=== PATIENT | female | born 1960 | race Caucasian/White ===

== ENCOUNTER → 2016-09-01 10:12 | Outpatient (CLI) | payer MEDICARE ==
[2016-09-01 11:07] LABS: ALBUMIN 3.6 g/dL (3.4-5.0); ANION GAP 13.2 mmol/L (8-16); BILIRUBIN - TOTAL 0.28 mg/dL (0.2-1.3); CARBON DIOXIDE 26.4 mmol/L (21.0-32.0); CREATININE - SERUM 1.1 mg/dL (0.6-1.3); POTASSIUM - SERUM 3.6 mmol/L (3.5-5.1); PROTEIN - SERUM 7.3 g/dL (6.4-8.2); T4 THYROXIN - FREE 1.27 ng/dL (0.76-1.46); THYROID STIMULATING HORMONE 0.09 uIU/mL (0.36-3.74)
== END | disposition home or self-care (01) ==
LOC: D.LAB 10:12
PROVIDERS: Family Medicine
DX: E03.9 Hypothyroidism, unspecified (principal)

== ENCOUNTER 2020-02-01 05:39 | Inpatient (IN) | payer MEDICARE, OTHER ==
[~2020-02-01] VITALS: Ht 152.4 cm; Wt 126.1 kg
[~2020-02-01 05:39] MED LIST: BAYER CHEWABLE81 MG PO; CALCIUM 500 +1 EAC3 PO; CELEXA20 MG PO; CENTRUM SILVER1 EAC3 PO; DULCOLAX5 MG PO; LEVOTHYROXINE150 MCG PO; LIPITOR20 MG PO; LISINOPRIL10 MG PO; OMEPRAZOLE40 MG PO; PROTONIX40 MG PO; STOOL SOFTENER250 MG PO; TORSEMIDE20 MG PO; TRAZODONE HCL50 MG PO; VITAMIN D PO; VITAMIN K2 PO; VOLTAREN25 MG PO
[2020-02-01 06:38] LABS: BASOPHILS 0.6 % (0-2); EOSINOPHILS 7.7 % (0-7); HEMATOCRIT 35.8 % (36.0-48.0); HEMOGLOBIN 11.7 g/dL (12-16); IMMATURE GRANULOCYTES 0.2 % (0-5); LYMPHOCYTES 20.6 % (15-50); MCH 29.8 pg (26.0-34.0); MCHC 32.7 g/dL (31.0-37.0); MCV 91.3 fL (80.0-100.0); MONOCYTES 8.4 % (2-11); NEUTROPHILS 62.5 % (40-80); PLATELET COUNT 334 10x3/uL (130-400); RBC 3.92 10x6/uL (4.00-5.40); RDW 14.2 % (11.5-14.5); WBC 8.7 10x3/uL (4.8-10.8)
[2020-02-01 06:51] LABS: CARBON DIOXIDE 24.5 mmol/L (21.0-32.0); CREATININE - SERUM 1.6 mg/dL (0.6-1.3); POTASSIUM - SERUM 4.5 mmol/L (3.5-5.1)
[2020-02-01 07:58] VITALS: BP 156/77; BMI 54.6
[2020-02-01 14:28] VITALS: BP 119/55
[2020-02-01 15:07] VITALS: BP 119/55; BMI 54.4
--- NOTE | 2020-02-01 15:14 | NUR ---
ASSESSMENT PER FLOW SHEET. PATIENT AWAKENS INT. SHE IS WITHOUT DISTRESS. MIDLINE INCISION SITE WITHOUT DRAINAGE. WOUND VAC IN PLACE. DANA DRAIN LLQ ABD HAS MINIMAL RD DRAINAGE IN BULB. SRINIVASAN TO GRAVITY WITH GREENISH /BLUE URINE IN BAG. SCD'S PLACED ON PATIENT.FAMILY AT BEDSIDE.
--- NOTE | 2020-02-01 18:33 | NUR ---
STILL VERY SLEEPY. PATIENT IS WITHOUT SIGNS OF DISTRESS. SHE IS WITHOUT CHANGE. CONT PLAN OF CARE
--- NOTE | 2020-02-01 19:00 | NUR ---
RECEIVED REPORT, ASSUMED CARE, IV PATENT, DENIES NEEDS, NO S/S OF DISTRESS NOTED, BED LOWEST POSITION, CALL LIGHT IN REACH, LANGUAGE ASST INITIATED, PREVINA WOUND VAC PATENT, ABD BINDER ON, SRINIVASAN TO GRAVITY
[2020-02-01 20:16] VITALS: BP 129/75
[2020-02-02 00:55] VITALS: BP 165/65
--- NOTE | 2020-02-02 04:16 | NUR ---
I have reviewed this patient and I concur with the Shift Assessment completed by the Licensed Practical Nurse today this shift.
[2020-02-02 05:07] VITALS: BP 123/68
[2020-02-02 06:39] LABS: ALBUMIN 2.7 g/dL (3.4-5.0); ANION GAP 16.1 mmol/L (8-16); BILIRUBIN - TOTAL 0.25 mg/dL (0.2-1.3); CALCIUM 7.2 mg/dL (8.5-10.1); CARBON DIOXIDE 19.5 mmol/L (21.0-32.0); CREATININE - SERUM 1.7 mg/dL (0.6-1.3); MAGNESIUM - SERUM 2.2 mg/dL (1.8-2.4); PHOSPHOROUS 5.3 mg/dL (2.5-4.9); PROTEIN - SERUM 6.2 g/dL (6.4-8.2)
[2020-02-02 06:41] LABS: POTASSIUM - SERUM 5.6 mmol/L (3.5-5.1)
[2020-02-02 06:55] LABS: HEMATOCRIT 32.5 % (36.0-48.0); HEMOGLOBIN 10.3 g/dL (12-16); MCH 30.1 pg (26.0-34.0); MCHC 31.7 g/dL (31.0-37.0); MEAN PLATELET VOLUME 10.4 fL (7.4-10.4); PLATELET COUNT 333 10x3/uL (130-400); RBC 3.42 10x6/uL (4.00-5.40); RDW 14.8 % (11.5-14.5)
[2020-02-02 07:19] LABS: LYMPHOCYTES 8 % (15-50); MONOCYTES 3 % (2-11); NEUTROPHILS 89 % (40-80); PLATELET ESTIMATE NORMAL
[2020-02-02 08:12] VITALS: BP 115/71
[2020-02-02 12:16] VITALS: BP 113/66
--- NOTE | 2020-02-02 13:02 | NUR ---
I have reviewed this patient and I concur with the Shift Assessment completed by the Licensed Practical Nurse today this shift.
--- NOTE | 2020-02-02 13:16 | NUR ---
I have reviewed this patient and I concur with the Shift Assessment completed by the Licensed Practical Nurse today this shift.
--- NOTE | 2020-02-02 14:05 | NUR ---
PATIENT SITTING IN BED IN FOWLERS POSITION, NO S/SX OF DISTRESS, PT MENTIONED THAT OPER DR SHE CAN HAVE SOMETHING TO DRINK, AFTER REVIEWING NOTES, CAN ONLY FIND NPO EXCEPT FOR ICE CHIPS, PT TO BE UP WITH PHYSICAL THERAPY AND AWAITING RETURN OF BOWEL FUNCTION. WILL CONTINUE WITH PLAN OF CARE
--- NOTE | 2020-02-02 14:25 | NUR ---
EMPTIED PATIENT DANA DRAIN BEFORE PATIENT GOT UP WITH PHYSICAL THERAPY. PT HAD 30CC IN DRAIN AT THIS TIME. PAT ABLE TO AMBULATE HALFAY INTO THE HALLWAY AND BACK TO HER ROOM WITH WALKER AND 2 PERSON ASSSIT DUE TO [place] AND OTHER TUBING AND CORDS. NO NEEDS VOICED AT THIS TIME CONTINUE WITH PLAN OF CARE
[2020-02-02 16:20] VITALS: BP 110/77
--- NOTE | 2020-02-02 19:00 | NUR ---
RECEIVED REPORT, ASSUMED CARE, IV PATENT, DENIES NEEDS, NO S/S OF DISTRESS NOTED, BED LOWEST POSITION, CALL LIGHT IN REACH, BLOW MOLDING MACHINE OPERATOR INFUSING, SITTING UP IN BED
[2020-02-02 20:00] VITALS: BP 124/71
[2020-02-03] VITALS: BP 131/75
[2020-02-03 04:00] VITALS: BP 134/80
[2020-02-03 06:09] LABS: BASOPHILS 0.2 % (0-2); EOSINOPHILS 2.5 % (0-7); HEMOGLOBIN 9.3 g/dL (12-16); IMMATURE GRANULOCYTES 0.3 % (0-5); LYMPHOCYTES 6.9 % (15-50); MCH 29.6 pg (26.0-34.0); MCV 95.5 fL (80.0-100.0); MEAN PLATELET VOLUME 9.6 fL (7.4-10.4); MONOCYTES 8.9 % (2-11); NEUTROPHILS 81.2 % (40-80); RBC 3.14 10x6/uL (4.00-5.40)
[2020-02-03 06:15] LABS: PLATELET COUNT 258 10x3/uL (130-400); WBC 12.6 10x3/uL (4.8-10.8)
[2020-02-03 06:35] LABS: ANION GAP 16.7 mmol/L (8-16); CALCIUM 8.1 mg/dL (8.5-10.1); CARBON DIOXIDE 17.4 mmol/L (21.0-32.0); POTASSIUM - SERUM 5.1 mmol/L (3.5-5.1)
[2020-02-03 08:10] VITALS: BP 141/90
--- NOTE | 2020-02-03 08:19 | NUR ---
PT ASLEEP ON BACK. EASILY AWAKENED. ABD BINDER RESITUATED. DANA DRAIN EMPTY. CL IN REACH. NO FURTHER NEEDS AT THIS TIME. WCTM
--- NOTE | 2020-02-03 12:07 | NUR ---
PT SITTING UP IN CHAIR. CL IN REACH. DENIES ANY NEEDS. WCTM
[2020-02-03 12:29] VITALS: BP 143/94
--- NOTE | 2020-02-03 13:30 | NUR ---
PT ASSISTED BACK TO BED. CL IN REACH. LUNCH TRAY SET BACK UP. WCTM
--- NOTE | 2020-02-03 16:06 | NUR ---
SRINIVASAN REMOVED. FELT URGE TO URINATE. TRAINING COMPLETE. 8 ML REMOVED FROM BALLOON. 150 ML REMOVED FROM BLADDER. CL IN REACH. WCTM
[2020-02-03 16:49] VITALS: BP 139/80
[2020-02-03 20:00] VITALS: BP 121/74
--- NOTE | 2020-02-03 21:36 | NUR ---
RECEIVED REPORT, ASSUMED CARE, IV PATENT, DENIES NEEDS, NO S/S OF DISTRESS NOTED, BED LOWEST POSITION, CALL LIGHT IN REACH, SALESPERSON STEREO EQUIPMENT INFUSING, WOUND VAC PATENT TO ABDOMEN, DANA DRAIN EMPTIED AND COMPRESSED, BREAHTING EVEN UNLABORED
--- NOTE | 2020-02-03 23:34 | NUR ---
I have reviewed this patient and I concur with the Shift Assessment completed by the Licensed Practical Nurse today this shift.
[2020-02-04] VITALS (7 sets, daily range): BP systolic 110–181; BP diastolic 47–99; Ht 152.4 cm; Wt 126.1 kg
[2020-02-04 05:56] LABS: ANION GAP 14.2 mmol/L (8-16); CALCIUM 8.3 mg/dL (8.5-10.1); CARBON DIOXIDE 17.3 mmol/L (21.0-32.0); CREATININE - SERUM 1.5 mg/dL (0.6-1.3); POTASSIUM - SERUM 4.5 mmol/L (3.5-5.1)
[2020-02-04 07:15] LABS: BASOPHILS 0.4 % (0-2); EOSINOPHILS 10.4 % (0-7); HEMATOCRIT 28.5 % (36.0-48.0); HEMOGLOBIN 8.7 g/dL (12-16); IMMATURE GRANULOCYTES 0.4 % (0-5); LYMPHOCYTES 11.1 % (15-50); MCH 29.2 pg (26.0-34.0); MCHC 30.5 g/dL (31.0-37.0); MCV 95.6 fL (80.0-100.0); MEAN PLATELET VOLUME 9.4 fL (7.4-10.4); MONOCYTES 8.7 % (2-11); PLATELET COUNT 238 10x3/uL (130-400); RBC 2.98 10x6/uL (4.00-5.40); RDW 14.8 % (11.5-14.5)
[2020-02-04 07:17] LABS: WBC 9.1 10x3/uL (4.8-10.8)
--- NOTE | 2020-02-04 07:20 | NUR ---
PT ALERT AND ORIENTED WATCHING TV. CL IN REACH. NO CO OF PAIN AT THIS TIME. WCTM
--- NOTE | 2020-02-04 11:12 | NUR ---
NEW MEDICATIONS GIVEN. PT AWAKE AND ALERT. CL IN REACH. WCTM
--- NOTE | 2020-02-04 14:16 | MORECARE ---
CASE MANAGEMENT DISCHARGE SUMMARY PATIENT: DARIELA SOLIZ UNIT: [id number] ADM DATE: 02/01/20 AGE: 59 : 62 SEX: F ROOM/BED: D.2218 AUTHOR: ISAAK ORLANDO PHYSICIAN: REFERRING PHYSICIAN: TRELL NASH MD DATE OF SERVICE: 02/04/20 Discharge Plan Patient Name: DARIELA SOLIZ Facility: [facility]:[place] : 1960 Planned Disposition: Home with Home Health Anticipated Discharge Date: Discharge Date: Expected LOS: Initial Reviewer: [id number] Initial Review Date: 02/02/2020 Generated: 02/04/20 3:15 pm Coverage Notice Reviewer: [id number] Cain Whittington Notice Issued Date-Time: 02/04/2020 13:25 Notice Type: IM Discharge Notice Notice Delivered To: Patient Relationship to Patient: Cartridge Belt Puncher Name: Delivery Method: HAND - Hand Delivered Millie Days: Prior Verbal Notification: Recipient Understood Notice: Yes Recipient Signature: Yes Med Rec Note Co-signed by Attending: Coverage Notice Comment: IMM explained, signed, copy given and original placed in medical record. Reviewer: [id number] Cain Whittington Notice Issued Date-Time: 02/04/2020 13:25 Notice Type: Patient Choice Letter Notice Delivered To: Patient Relationship to Patient: Cartridge Belt Puncher Name: Delivery Method: HAND - Hand Delivered Millie Days: Prior Verbal Notification: Recipient Understood Notice: Yes Recipient Signature: Yes Med Rec Note Co-signed by Attending: Coverage Notice Comment: [facility] Patient Name: DARIELA SOLIZ Page [id number] at 1416 All edits/amendments must be made on the electronic document DICTATION DATE: 02/04/20 1415 BUSHEL WORKER: DWIGHT 02/04/20 1415 RPT#: [id number] DC DATE: STATUS: ADM IN [facility] [address] [place] [address] END OF REPORT
--- NOTE | 2020-02-04 14:25 | MORECARE ---
CASE MANAGEMENT DISCHARGE SUMMARY PATIENT: DARIELA SOLIZ UNIT: [id number] ADM DATE: 02/01/20 AGE: 59 : 62 SEX: F ROOM/BED: D.8089 AUTHOR: JOHANNY,DOC PHYSICIAN: REFERRING PHYSICIAN: TRELL NASH MD DATE OF SERVICE: 02/04/20 Discharge Plan Patient Name: DARIELA SOLIZ Facility: [facility]:[place] : 1960 Planned Disposition: Home with Home Health Anticipated Discharge Date: Discharge Date: Expected LOS: Initial Reviewer: [email or web address] Initial Review Date: 02/02/2020 Generated: 02/04/20 3:24 pm Comments DCP- Discharge Planning Updated by [email or web address]: Dana Whittington on 02/04/20 1:[address] Patient Name: DARIELA SOLIZ Admission Status: Elective Accout number: [id number] Admission Date: 02-01-2020 : 1960 Admission Diagnosis: Attending: TRELL NASH Current LOS: 3 Anticipated DC Date: Planned Disposition: Home with Home Health Primary Insurance: [facility] MEDICARE SOLUTIONS Discharge Planning Comments: CM met with patient to complete initial dc planning assessment. CM educated patient on the CM role and verbal consent given by patient to complete assessment. Patient lives at home by herself where she stated that she was independent with her care. At discharge patient plans to return home and feels this is a safe discharge. CM discussed availability of home health, rehab services, and medical equipment. She is agreeable to , KIRAN signed for whoever comes to her home and take her insurance. She stated that she was real short of breath, I have notified her nurse. She stated that Gabrielle will be her taxi cab driver home. IMM served also and explained. Patient denied known discharge needs at this time. CM will continue to follow and will assist as needed with dc plans/needs. Absorber Operator: Dana Whittington DCPIA - Discharge Planning Initial Assessment Updated by [email or web address]: Dana Whittington on 02/04/20 2:20 pm * Is the patient Alert and Oriented? Yes * PCP DR GASCA * Pharmacy [facility] * Preadmission Environment Home Alone * ADLs Independent * Equipment None * List name and contact numbers for known caregivers / representatives who currently or will assist patient after discharge: GABRIELLE ELLISON ( FRIEND) [phone] * Verbal permission to speak to the caregivers and representatives has been obtained from the patient. N/A * Community resources currently utilized None * Additional services required to return to the preadmission environment? Yes * Can the patient safely return to the preadmission environment? Yes * Has this patient been hospitalized within the prior 30 days at any hospital? No Coverage Notice Reviewer: [email or web address] Whittington Notice Issued Date-Time: 02/04/2020 13:25 Notice Type: IM Discharge Notice Notice Delivered To: Patient Relationship to Patient: Map Compiler Name: Delivery Method: HAND - Hand Delivered Millie Days: Prior Verbal Notification: Recipient Understood Notice: Yes Recipient Signature: Yes Med Rec Note Co-signed by Attending: Coverage Notice Comment: IMM explained, signed, copy given and original placed in medical record. Reviewer: [email or web address] Whittington Notice Issued Date-Time: 02/04/2020 13:25 Notice Type: Patient Choice Letter Notice Delivered To: Patient Relationship to Patient: Map Compiler Name: Delivery Method: HAND - Hand Delivered Millie Days: Prior Verbal Notification: Recipient Understood Notice: Yes Recipient Signature: Yes Med Rec Note Co-signed by Attending: Coverage Notice Comment: [facility] FOR HH Last DP export: 02/04/20 1:16 p Patient Name: DARIELA SOLIZ Page [phone] at 1425 All edits/amendments must be made on the electronic document DICTATION DATE: 02/04/201423 FILM WAXER: DWIGHT 02/04/201423 RPT#: [id number] DC DATE: STATUS: ADM IN [facility] [address] [place] [address] END OF REPORT
[2020-02-05 04:12] VITALS: BP 175/81
--- NOTE | 2020-02-05 07:42 | NUR ---
PATIENT SITTING ON SIDE OF BED TODAY WHEN I CAME IN, PATIENT STATED SHE IS IN A LOT OF PAIN. ASKED PATIENT IF SHE HAS PUSHED HER REFRIGERATION SUPERVISOR BUTTON, PATIENT STATED SHE HAD NOT HAD ANY PAIN MEDICATION OVER NIGHT. ENCOURAGED PATIENT TO PUSH REFRIGERATION SUPERVISOR WHEN SHE STARTS TO FEEL PAIN. NO OTHER NEEDS ATTHIS TIME VOICED. CONTINUE WITH PLAN OF CARE
--- NOTE | 2020-02-05 08:52 | NUR ---
PATIENT BP IS 172/86 PER ORDERS PT NEEDS TO HAVE PRN BP MED FOR SBP OVER 150. WILL HAVE RN ADMINISTER BP MEDICATION, NO OTHER NEEDS AT THIS TIME, CONTINUE WITH PLAN OF CARE
[2020-02-05 08:55] VITALS: BP 172/86
--- NOTE | 2020-02-05 10:28 | MORECARE ---
CASE MANAGEMENT DISCHARGE SUMMARY PATIENT: DARIELA SOLIZ UNIT: [id number] ADM DATE: 02/01/20 AGE: 59 : 62 SEX: F ROOM/BED: D.9916 AUTHOR: JOHANNYDOC PHYSICIAN: REFERRING PHYSICIAN: TRELL NASH MD DATE OF SERVICE: 02/05/20 Discharge Plan Patient Name: DARIELA SOLIZ Facility: [facility]:[place] : 1960 Planned Disposition: Home with Home Health Anticipated Discharge Date: Discharge Date: Expected LOS: Initial Reviewer: [email or web address] Initial Review Date: 02/02/2020 Generated: 02/05/20 11:27 am DCP- Discharge Planning Updated by [email or web address]: Dana Whittington on 02/04/20 1:[address] Patient Name: DARIELA SOLIZ Admission Status: Elective Accout number: [id number] Admission Date: 02-01-2020 : 1960 Admission Diagnosis: Attending: TRELL NASH Current LOS: 3 Anticipated DC Date: Planned Disposition: Home with Home Health Primary Insurance: [facility] MEDICARE SOLUTIONS Discharge Planning Comments: CM met with patient to complete initial dc planning assessment. CM educated patient on the CM role and verbal consent given by patient to complete assessment. Patient lives at home by herself where she stated that she was independent with her care. At discharge patient plans to return home and feels this is a safe discharge. CM discussed availability of home health, rehab services, and medical equipment. She is agreeable to , KIRAN signed for whoever comes to her home and take her insurance. She stated that she was real short of breath, I have notified her nurse. She stated that Gabrielle will be her mule driver home. IMM served also and explained. Patient denied known discharge needs at this time. CM will continue to follow and will assist as needed with dc plans/needs. Industrial Machine System Technician: Dana Whittington DCPIA - Discharge Planning Initial Assessment Updated by [email or web address]: Dana Whittington on 02/04/20 2:20 pm * Is the patient Alert and Oriented? Yes * PCP DR GASCA * Pharmacy [facility] * Preadmission Environment Home Alone * ADLs Independent * Equipment None * List name and contact numbers for known caregivers / representatives who currently or will assist patient after discharge: GABRIELLE ELLISON ( FRIEND) [phone] * Verbal permission to speak to the caregivers and representatives has been obtained from the patient. N/A * Community resources currently utilized None * Additional services required to return to the preadmission environment? Yes * Can the patient safely return to the preadmission environment? Yes * Has this patient been hospitalized within the prior 30 days at any hospital? No External Providers External Provider: [facility] Next Contact Date: Service Request Date: Service Type: Resolution: Reviewer: Comments: Coverage Notice Reviewer: [id number] Cain Whittington Notice Issued Date-Time: 02/04/2020 13:25 Notice Type: IM Discharge Notice Notice Delivered To: Patient Relationship to Patient: Wildlife Officer Name: Delivery Method: HAND - Hand Delivered Millie Days: Prior Verbal Notification: Recipient Understood Notice: Yes Recipient Signature: Yes Med Rec Note Co-signed by Attending: Coverage Notice Comment: IMM explained, signed, copy given and original placed in medical record. Reviewer: [id number] Whittington Notice Issued Date-Time: 02/04/2020 13:25 Notice Type: Patient Choice Letter Notice Delivered To: Patient Relationship to Patient: Wildlife Officer Name: Delivery Method: HAND - Hand Delivered Millie Days: Prior Verbal Notification: Recipient Understood Notice: Yes Recipient Signature: Yes Med Rec Note Co-signed by Attending: Coverage Notice Comment: [facility] FOR HH Last DP export: 02/04/20 1:25 p Patient Name: DARIELA SOLIZ Page [phone] at 1028 All edits/amendments must be made on the electronic document DICTATION DATE: 02/05/20 1027 PHARMACY ANCILLARY: DWIGHT 02/05/20 1027 RPT#: [id number] DC DATE: STATUS: ADM IN [facility] [address] [place] [address] END OF REPORT
[2020-02-05 11:13] LABS: BASOPHILS 0.3 % (0-2); HEMATOCRIT 30.2 % (36.0-48.0); HEMOGLOBIN 9.3 g/dL (12-16); IMMATURE GRANULOCYTES 0.4 % (0-5); LYMPHOCYTES 11.5 % (15-50); MCH 29.4 pg (26.0-34.0); MCHC 30.8 g/dL (31.0-37.0); MCV 95.6 fL (80.0-100.0); MEAN PLATELET VOLUME 9.5 fL (7.4-10.4); MONOCYTES 9.8 % (2-11); PLATELET COUNT 276 10x3/uL (130-400); RBC 3.16 10x6/uL (4.00-5.40); RDW 14.5 % (11.5-14.5); WBC 9.9 10x3/uL (4.8-10.8)
[2020-02-05 11:41] LABS: ALBUMIN 2.8 g/dL (3.4-5.0); ANION GAP 14.3 mmol/L (8-16); BILIRUBIN - TOTAL 0.45 mg/dL (0.2-1.3); CALCIUM 8.2 mg/dL (8.5-10.1); CARBON DIOXIDE 17.9 mmol/L (21.0-32.0); POTASSIUM - SERUM 4.2 mmol/L (3.5-5.1)
[2020-02-05 11:42] LABS: CREATININE - SERUM 1.1 mg/dL (0.6-1.3)
[2020-02-05 12:57] VITALS: BP 156/83
--- NOTE | 2020-02-05 14:01 | NUR ---
PATIENT IN RESTROOM STATED SHE IS HAVING A BM, PATIENT VERY EXCITED, NO OTHER NEEDS AT THIS TIME. CONTINUE WITH PLAN OF CARE
[2020-02-05 18:08] VITALS: BP 164/80
--- NOTE | 2020-02-05 18:12 | NUR ---
I have reviewed this patient and I concur with the Shift Assessment completed by the Licensed Practical Nurse today this shift.
[2020-02-05 20:00] VITALS: BP 148/82
[2020-02-06 04:00] VITALS: BP 149/80
--- NOTE | 2020-02-06 06:02 | NUR ---
I have reviewed this patient and I concur with the Shift Assessment completed by the Licensed Practical Nurse today this shift.
--- NOTE | 2020-02-06 07:43 | NUR ---
AWAKE AND WITHOUT DISTRESS.ECONOMICS INSTRUCTOR AT BEDSIDE. PATIENT DENIES NEEDS.CALL LIGHT IN REACH
[2020-02-06 09:10] VITALS: BP 158/92
[2020-02-06 12:13] VITALS: BP 150/90
[2020-02-06 16:17] VITALS: BP 143/84
--- NOTE | 2020-02-06 17:33 | NUR ---
PATIENT WANTED TO KNOW IF SHE IS BEING DC TOMORROW, PT IS STILL ON ROPE MACHINE SETTER, PAGED DR SOSA BECAUSE PT STATED DR SOSA IS HER DOCTOR AND WHEN DR SOSA CALLED BACK STATED THAT DR NASH IS ACTUAL SURGEON. HAD DR NASH PAGED
[2020-02-06 20:00] VITALS: BP 152/82
[2020-02-07] VITALS: BP 160/80
[2020-02-07 04:00] VITALS: BP 140/76
--- NOTE | 2020-02-07 07:15 | NUR ---
RECEIVED BEDSIDE REPORT. PT SITTING UP IN BED, A&O X4, DENIES PAIN OR NEEDS. CVL IN RIGHT JUG, PATENT AND INFUSING NS, NO REDNESS OR SWELLING. DANA DRAIN TO LEFT SIDE OF ABD, ABD BINDER IN PLACE, WOUND VAC TO MIDLINE OF ABD, PATENT AND DRAINING, 3 LAP SITES BILAT FLANKS. PT ABLE TO AMBULATE WITH MIN ASSIST. PT ABLE TO AMBULATE FROM BED TO CHAIR, ASKED PT TO STAY IN CHAIR UNTIL AFTER LUNCH, VERBALIZED UNDERSTANDING. EDUCATED PT ON CL AND NEEDS, VERBALIZED UNDERSTANDING. BED LOW, RAILS X2. CL IN REACH, WILL CONTINUE TO MONITOR.
[2020-02-07 09:25] VITALS: BP 155/89
[2020-02-07 13:10] VITALS: BP 153/83
--- NOTE | 2020-02-07 13:35 | NUR ---
ASSISTED PT FROM CHAIR BACK TO BED. PT TOLERATED WELL. CL IN REACH, WILL CONTINUE TO MONITOR.
--- NOTE | 2020-02-07 17:45 | NUR ---
PT C/O PAIN 12/23, PROVIDED MEDS PER ORDER. WILL CONTINUE TO MONITOR.
[2020-02-07 17:48] VITALS: BP 167/69
[2020-02-08] VITALS: BP 140/71
--- NOTE | 2020-02-08 03:21 | NUR ---
ASSESSED WHEN THE DAY NURSE LEFT. PT IS ALERT AND ORIENTED, ABLE TO VERBALIZE NEEDS. DRESSING TO ABD INCISION AND DANA DRAIN INTACT WITHOUT DRAINAGE. IV SITE TO RIGHT JUGULAR SALINE LOCKED. PAIN MEDS GIVEN REQUESTED AND ORDERED. PT IS RESTING QUUIET WITH NO DISTRESS NOTED.
[2020-02-08 04:00] VITALS: BP 154/81
[2020-02-08 07:41] LABS: BASOPHILS 0.1 % (0-2); EOSINOPHILS 12.1 % (0-7); HEMATOCRIT 27.2 % (36.0-48.0); HEMOGLOBIN 8.4 g/dL (12-16); IMMATURE GRANULOCYTES 0.9 % (0-5); LYMPHOCYTES 20.3 % (15-50); MCH 28.9 pg (26.0-34.0); MCHC 30.9 g/dL (31.0-37.0); MCV 93.5 fL (80.0-100.0); MEAN PLATELET VOLUME 9.4 fL (7.4-10.4); MONOCYTES 10.2 % (2-11); NEUTROPHILS 56.4 % (40-80); PLATELET COUNT 235 10x3/uL (130-400); RBC 2.91 10x6/uL (4.00-5.40); RDW 14.6 % (11.5-14.5); WBC 7.7 10x3/uL (4.8-10.8)
[2020-02-08 08:15] LABS: ALBUMIN 2.5 g/dL (3.4-5.0); ANION GAP 14.6 mmol/L (8-16); BILIRUBIN - TOTAL 0.32 mg/dL (0.2-1.3); CALCIUM 8.2 mg/dL (8.5-10.1); CARBON DIOXIDE 20.9 mmol/L (21.0-32.0); CREATININE - SERUM 1.1 mg/dL (0.6-1.3); POTASSIUM - SERUM 3.5 mmol/L (3.5-5.1); PROTEIN - SERUM 5.4 g/dL (6.4-8.2)
--- NOTE | 2020-02-08 09:00 | NUR ---
ALERT AND ORIENTED X4. ABDOMINAL WOUND VAC INTACT WITH BS NOTED. DANA DRAIN NOTED WITH SERROUS SANGUNOUS DRAINAGE. UP ADLIB WITH SBA. REFUSES SCD'S AT THIS TIME. INSTRUCTED ON FLUID RESTRICTION AT THIS TIME. IV TO RT. JUGULAR S/L INTACT. ENCOURAGED TO USE CALL LIGHT FOR ASSIT.
[2020-02-08 10:43] VITALS: BP 154/79
[2020-02-08 13:03] VITALS: BP 129/98
--- NOTE | 2020-02-08 13:59 | NUR ---
Nutrition follow-up: Pt advanced to soft bland diet with po intake 75-100% of meals Labs reviewed +BM Wt: 278# Pt tolerating diet at this time RDN following.
--- NOTE | 2020-02-08 14:17 | MORECARE ---
CASE MANAGEMENT DISCHARGE SUMMARY PATIENT: DARIELA SOLIZ UNIT: [id number] ADM DATE: 02/01/20 AGE: 59 : 62 SEX: F ROOM/BED: D.2218 AUTHOR: JOHANNY,DOC PHYSICIAN: REFERRING PHYSICIAN: TRELL NASH MD DATE OF SERVICE: 02/08/20 Discharge Plan Patient Name: DARIELA SOLIZ Facility: [facility]:[place] : 1960 Planned Disposition: Home with Home Health Anticipated Discharge Date: Discharge Date: Expected LOS: Initial Reviewer: [id number] Initial Review Date: 02/02/2020 Generated: 02/08/20 3:16 pm Comments DCP- Discharge Planning Updated by [email or web address]: Dana Whittington on 02/08/20 1:[address] I SPOKE WITH THE PATIENT ABOUT HOME HEALTH, KIRAN WITH [facility] IMM SERVED AND EXPLAINED. PATIENT WAS SHORT OF BREATH JUST TALKING I ORDERED A WALK TEST FOR HOME O2 NEEDS AND RT WALKED HER BUT COULD NOT COMPLETE THE TEST BECAUSE HER HR JUSMPED TO 157. SHE STOPPED THE TEST AND GOT BACK TO BED. POX WAS 90% ON ROOM AIR WITHOUT THE COMPLTETED WALK TEST. DCP- Discharge Planning Updated by [id number]: Dana Whittington on 02/04/20 1:[address] Patient Name: DARIELA SOLIZ Admission Status: Elective Accout number: [id number] Admission Date: 02-01-2020 : 1960 Admission Diagnosis: Attending: TRELL NASH Current LOS: 3 Anticipated DC Date: Planned Disposition: Home with Home Health Primary Insurance: [facility] MEDICARE SOLUTIONS Discharge Planning Comments: CM met with patient to complete initial dc planning assessment. CM educated patient on the CM role and verbal consent given by patient to complete assessment. Patient lives at home by herself where she stated that she was independent with her care. At discharge patient plans to return home and feels this is a safe discharge. CM discussed availability of home health, rehab services, and medical equipment. She is agreeable to , KIRAN signed for whoever comes to her home and take her insurance. She stated that she was real short of breath, I have notified her nurse. She stated that Gabrielle will be her paratransit driver home. IMM served also and explained. Patient denied known discharge needs at this time. CM will continue to follow and will assist as needed with dc plans/needs. Grocery Store Clerk: Dana Whittington DCPIA - Discharge Planning Initial Assessment Updated by [email or web address]: Dana Whittington on 02/04/20 2:20 pm * Is the patient Alert and Oriented? Yes * PCP DR GASCA * Pharmacy [facility] * Preadmission Environment Home Alone * ADLs Independent * Equipment None * List name and contact numbers for known caregivers / representatives who currently or will assist patient after discharge: GABRIELLE ELLISON ( FRIEND) [phone] * Verbal permission to speak to the caregivers and representatives has been obtained from the patient. N/A * Community resources currently utilized None * Additional services required to return to the preadmission environment? Yes * Can the patient safely return to the preadmission environment? Yes * Has this patient been hospitalized within the prior 30 days at any hospital? No Coverage Notice Reviewer: [id number] Cain Whittington Notice Issued Date-Time: 02/04/2020 13:25 Notice Type: IM Discharge Notice Notice Delivered To: Patient Relationship to Patient: Fur Plucker Name: Delivery Method: HAND - Hand Delivered Millie Days: Prior Verbal Notification: Recipient Understood Notice: Yes Recipient Signature: Yes Med Rec Note Co-signed by Attending: Coverage Notice Comment: IMM explained, signed, copy given and original placed in medical record. Reviewer: [id number] Cain Whittington Notice Issued Date-Time: 02/04/2020 13:25 Notice Type: Patient Choice Letter Notice Delivered To: Patient Relationship to Patient: Fur Plucker Name: Delivery Method: HAND - Hand Delivered Millie Days: Prior Verbal Notification: Recipient Understood Notice: Yes Recipient Signature: Yes Med Rec Note Co-signed by Attending: Coverage Notice Comment: [facility] Reviewer: [id number] Cain Whittington Notice Issued Date-Time: 02/08/2020 12:00 Notice Type: IM Discharge Notice Notice Delivered To: Patient Relationship to Patient: Fur Plucker Name: Delivery Method: HAND - Hand Delivered Millie Days: Prior Verbal Notification: Recipient Understood Notice: Yes Recipient Signature: Yes Med Rec Note Co-signed by Attending: Coverage Notice Comment: Last DP export: 02/05/20 9:28 a Patient Name: CARTERA Page [phone] at 1417 All edits/amendments must be made on the electronic document DICTATION DATE: 02/08/201415 LEATHER GOODS ASSEMBLER: DWIGHT 02/08/201415 RPT#: [id number] DC DATE: STATUS: ADM IN [facility] [address] [place] [address] END OF REPORT
--- NOTE | 2020-02-08 15:57 | NUR ---
DANA DRAIN DISCONTINUED WELL WOUND VAC WITH SUTURES DRY AND INTACT W/O ANY S/S OF INFECTION WITH DRESSINGS APPLIED PER ORDER OF WASHROOM CLEANER. DENIES ANY PAIN OR DISCOMFORT AT THIS TIME.
[2020-02-08 17:22] VITALS: BP 129/75
--- NOTE | 2020-02-08 20:40 | NUR ---
RECEIVED REPORT, ASSUMED CARE, IV PATENT, DENIES NEEDS, NO S/S OF DISTRESS NOTED, A&O X3, CALL LIGHT IN REACH, BREATHING EVEN UNLABORED
[2020-02-08 21:08] VITALS: BP 143/80
--- NOTE | 2020-02-09 00:09 | NUR ---
I have reviewed this patient and I concur with the Shift Assessment completed by the Licensed Practical Nurse today this shift.
[2020-02-09 05:57] VITALS: BP 155/78
--- NOTE | 2020-02-09 09:00 | NUR ---
ALERT AND ORIENTED X4. UP IN CHAIR WITH SBA. ABDOMINAL DRESSINGS AND GUERDA INTACT WITH NO S/S OF INFECTION NOTED. GENERALIZED EDEMA NOTED TO BLE WITH DRECEASED EDEMA NOTED. PATIENT STATES FEELS BETTER TODAY WITH DECREASED SWELLING. ENCOURATED TO USE CALL LIGHT FOR ASSIST.
[2020-02-09 09:27] VITALS: BP 129/81
--- NOTE | 2020-02-09 11:00 | NUR ---
BOWEL SOUNDS NOTED WITH LARGE BM NOTED. DENIES ANY PAIN OR DISCOMFORT.
[2020-02-09 12:00] VITALS: BP 133/81
[2020-02-09 18:06] VITALS: BP 143/74
--- NOTE | 2020-02-09 19:00 | NUR ---
BEDSIDE REPORT RECEIVED AND CARE OF PT ASSUMED. PT LYING IN LOW PETER'S POSITION VISITING WITH FAMILY MEMBER. RIGHT IJ SALINE LOCKED. BLE WITH 2+ EDEMA. WILL MONITOR FOR NEEDS.
[2020-02-09 20:00] VITALS: BP 145/88
--- NOTE | 2020-02-09 20:04 | NUR ---
HS MEDICATIONS GIVEN. WILL CONTINUE TO MONITOR FOR NEEDS.
--- NOTE | 2020-02-09 21:46 | NUR ---
GAVE NORCO PO AND ATIVAN 1 MG IVP PER PT REQUEST FOR PAIN AND SLEEP. WILL MONITOR FOR EFFECTIVENESS. FAMILY MEMBER IS AT BEDSIDE. TOLD PT AND VISITOR FOR PT TO ASK FOR ASSISTANCE WHEN AMBULATING AFTER RECEIVING THESE MEDS.
[2020-02-10 04:00] VITALS: BP 123/73
[2020-02-10 08:00] VITALS: BP 116/71
--- NOTE | 2020-02-10 09:51 | NUR ---
ALERT AND OREINTED X4. DRESSING INTACT TO ABDOMEN AND DANA SITE WITH ABDOMINAL BINDER NOTED. 3 GUERDA REMOVED FROM ABDOMEN. DENIES ANY PAIN OR DISCOMFORT WITH BOWEL SOUNDS NOTED X4. UP WITH SBA TO BATHROOM. ENCOURAGED TO USE CALL LIGHT FOR ASSSIT.
[2020-02-10 12:16] VITALS: BP 128/68
[2020-02-10 15:00] VITALS: BP 129/69
--- NOTE | 2020-02-10 19:01 | MORECARE ---
CASE MANAGEMENT DISCHARGE SUMMARY PATIENT: DARIELA SOLIZ UNIT: [id number] ADM DATE: 02/01/20 AGE: 59 : 62 SEX: F ROOM/BED: D.2218 AUTHOR: JOHANNY,DOC PHYSICIAN: REFERRING PHYSICIAN: TRELL NASH MD DATE OF SERVICE: 02/10/20 Discharge Plan Patient Name: DARIELA SOLIZ Facility: [facility]:[place] : 1960 Planned Disposition: Home with Home Health Anticipated Discharge Date: Discharge Date: Expected LOS: Initial Reviewer: [id number] Initial Review Date: 02/02/2020 Generated: 02/10/20 8:01 pm Comments DCP- Discharge Planning Updated by [email or web address]: Berry Lambert on 02/10/20 5:[address] Patient Name: DARIELA SOLIZ Encounter No: [id number] : 1960 Primary Insurance: [facility] [employer] Anticipated DC Date: Planned Disposition: Home with Home Health External Planned Provider: : DCP follow-up note: DC IMM delivered, explained, signed by the patient, and placed in chart. Signed form also left with the patient. Clinicals faxed to Nury BETH and left that Patient has DCd. CM will continue to follow and will assist as needed with dc plans/needs. Berry Lambert DCP- Discharge Planning Updated by [id number]: Dana Whittington on 02/08/20 1:[address] I SPOKE WITH THE PATIENT ABOUT HOME HEALTH, KIRAN WITH NURY CAMPOS IMM SERVED AND EXPLAINED. PATIENT WAS SHORT OF BREATH JUST TALKING I ORDERED A WALK TEST FOR HOME O2 NEEDS AND RT WALKED HER BUT COULD NOT COMPLETE THE TEST BECAUSE HER HR JUSMPED TO 157. SHE STOPPED THE TEST AND GOT BACK TO BED. POX WAS 90% ON ROOM AIR WITHOUT THE COMPLTETED WALK TEST. DCP- Discharge Planning Updated by [id number]: Dana Whittington on 02/04/20 1:[address] Patient Name: DARIELA SOLIZ Admission Status: Elective Accout number: [id number] Admission Date: 02-01-2020 : 1960 Admission Diagnosis: Attending: TRELL NASH Current LOS: 3 Anticipated DC Date: Planned Disposition: Home with Home Health Primary Insurance: [facility] [employer]IONS Discharge Planning Comments: CM met with patient to complete initial dc planning assessment. CM educated patient on the CM role and verbal consent given by patient to complete assessment. Patient lives at home by herself where she stated that she was independent with her care. At discharge patient plans to return home and feels this is a safe discharge. CM discussed availability of home health, rehab services, and medical equipment. She is agreeable to , KIRAN signed for whoever comes to her home and take her insurance. She stated that she was real short of breath, I have notified her nurse. She stated that Gabrielle will be her buggy driver home. IMM served also and explained. Patient denied known discharge needs at this time. CM will continue to follow and will assist as needed with dc plans/needs. Aircraft Engine Dismantler: Dana Whittington DCPIA - Discharge Planning Initial Assessment Updated by [email or web address]: Dana Whittington on 02/04/20 2:20 pm * Is the patient Alert and Oriented? Yes * PCP DR GASCA * Pharmacy [facility] * Preadmission Environment Home Alone * ADLs Independent * Equipment None * List name and contact numbers for known caregivers / representatives who currently or will assist patient after discharge: GABRIELLE ELLISON ( FRIEND) [phone] * Verbal permission to speak to the caregivers and representatives has been obtained from the patient. N/A * Community resources currently utilized None * Additional services required to return to the preadmission environment? Yes * Can the patient safely return to the preadmission environment? Yes * Has this patient been hospitalized within the prior 30 days at any hospital? No Coverage Notice Reviewer: [id number] Cain Whittington Notice Issued Date-Time: 02/04/2020 13:25 Notice Type: IM Discharge Notice Notice Delivered To: Patient Relationship to Patient: Ocular Care Technologist Name: Delivery Method: HAND - Hand Delivered Millie Days: Prior Verbal Notification: Recipient Understood Notice: Yes Recipient Signature: Yes Med Rec Note Co-signed by Attending: Coverage Notice Comment: IMM explained, signed, copy given and original placed in medical record. Reviewer: [id number] Cain Whittington Notice Issued Date-Time: 02/04/2020 13:25 Notice Type: Patient Choice Letter Notice Delivered To: Patient Relationship to Patient: Ocular Care Technologist Name: Delivery Method: HAND - Hand Delivered Millie Days: Prior Verbal Notification: Recipient Understood Notice: Yes Recipient Signature: Yes Med Rec Note Co-signed by Attending: Coverage Notice Comment: KIRAN FOR [facility] Reviewer: [id number] - Dana Whittington Notice Issued Date-Time: 02/08/2020 12:00 Notice Type: IM Discharge Notice Notice Delivered To: Patient Relationship to Patient: Ocular Care Technologist Name: Delivery Method: HAND - Hand Delivered Millie Days: Prior Verbal Notification: Recipient Understood Notice: Yes Recipient Signature: Yes Med Rec Note Co-signed by Attending: Coverage Notice Comment: Reviewer: [id number] - Berry Lambert Notice Issued Date-Time: 02/10/2020 18:37 Notice Type: IM Discharge Notice Notice Delivered To: Patient Relationship to Patient: Self Ocular Care Technologist Name: Delivery Method: HAND - Hand Delivered Millie Days: Prior Verbal Notification: Recipient Understood Notice: Yes Recipient Signature: Yes Med Rec Note Co-signed by Attending: Coverage Notice Comment: DC IMM delivered, explained, signed by the patient, and placed in chart. Signed form also left with the patient. Last DP export: 02/08/20 1:17 p Patient Name: DARIELA SOLIZ Page [id number] at 1901 All edits/amendments must be made on the electronic document DICTATION DATE: 02/10/201900 RECYCLING CENTER OPERATOR: DWIGHT 02/10/201900 RPT#: [id number] DC DATE: STATUS: ADM IN [facility] [address] [place] [address] END OF REPORT
--- NOTE | 2020-02-10 19:03 | NUR ---
RIGHT IJCVL DISCONTINUED WITH PRESSURE DRESSING APPLIED. VERBALIZED UNDERSTANDING OF DISCHARGE INSTRUCTIONS. STABLE AT TIME OF DISCHARGE.
--- NOTE | 2020-02-11 08:45 | MORECARE ---
CASE MANAGEMENT DISCHARGE SUMMARY PATIENT: DARIELA SOLIZ UNIT: [id number] ADM DATE: 02/01/20 AGE: 59 : 62 SEX: F ROOM/BED: D.1977 AUTHOR: JOHANNYDOC PHYSICIAN: REFERRING PHYSICIAN: TRELL NASH MD DATE OF SERVICE: 02/11/20 Discharge Plan Patient Name: DARIELA SOLIZ Facility: [facility]:[place] : 1960 Planned Disposition: Home with Home Health Anticipated Discharge Date: Discharge Date: 02/10/2020 Expected LOS: Initial Reviewer: [email or web address] Initial Review Date: 02/02/2020 Generated: 02/11/20 9:45 am Comments DCP- Discharge Planning Updated by [email or web address]: Berry Lambert on 02/10/20 5:[address] Patient Name: DARIELA SOLIZ Encounter No: [id number] : 1960 Primary Insurance: [facility] MEDIC[employer] SOLUTIONS Anticipated DC Date: Planned Disposition: Home with Home Health External Planned Provider: : DCP follow-up note: DC IMM delivered, explained, signed by the patient, and placed in chart. Signed form also left with the patient. Clinicals faxed to Nury CAMPOS and left that Patient has DCd. CM will continue to follow and will assist as needed with dc plans/needs. Berry Lambert DCP- Discharge Planning Updated by [email or web address]: Dana Whittington on 02/08/20 1:[address] I SPOKE WITH THE PATIENT ABOUT HOME HEALTH, KIRAN WITH NURY IMM SERVED AND EXPLAINED. PATIENT WAS SHORT OF BREATH JUST TALKING I ORDERED A WALK TEST FOR HOME O2 NEEDS AND RT WALKED HER BUT COULD NOT COMPLETE THE TEST BECAUSE HER HR JUSMPED TO 157. SHE STOPPED THE TEST AND GOT BACK TO BED. POX WAS 90% ON ROOM AIR WITHOUT THE COMPLTETED WALK TEST. DCP- Discharge Planning Updated by [email or web address]: Dana Whittington on 02/04/20 1:[address] Patient Name: DARIELA SOLIZ Admission Status: Elective Accout number: [id number] Admission Date: 02-01-2020 : 1960 Admission Diagnosis: Attending: TRELL NASH Current LOS: 3 Anticipated DC Date: Planned Disposition: Home with Home Health Primary Insurance: [facility] MED[employer] SOLUTIONS Discharge Planning Comments: CM met with patient to complete initial dc planning assessment. CM educated patient on the CM role and verbal consent given by patient to complete assessment. Patient lives at home by herself where she stated that she was independent with her care. At discharge patient plans to return home and feels this is a safe discharge. CM discussed availability of home health, rehab services, and medical equipment. She is agreeable to , KIRAN signed for whoever comes to her home and take her insurance. She stated that she was real short of breath, I have notified her nurse. She stated that Gabrielle will be her pickup driver home. IMM served also and explained. Patient denied known discharge needs at this time. CM will continue to follow and will assist as needed with dc plans/needs. Insurance Sales Manager: Dana Whittington DCPIA - Discharge Planning Initial Assessment Updated by [id number]: Dana Whittington on 02/04/20 2:20 pm * Is the patient Alert and Oriented? Yes * PCP DR GASCA * Pharmacy [facility] * Preadmission Environment Home Alone * ADLs Independent * Equipment None * List name and contact numbers for known caregivers / representatives who currently or will assist patient after discharge: GABRIELLE ELLISON ( FRIEND) [phone] * Verbal permission to speak to the caregivers and representatives has been obtained from the patient. N/A * Community resources currently utilized None * Additional services required to return to the preadmission environment? Yes * Can the patient safely return to the preadmission environment? Yes * Has this patient been hospitalized within the prior 30 days at any hospital? No Coverage Notice Reviewer: [id number] - Berry Lambert Notice Issued Date-Time: 02/10/2020 18:37 Notice Type: IM Discharge Notice Notice Delivered To: Patient Relationship to Patient: Self Clipper Counters Name: Delivery Method: HAND - Hand Delivered Millie Days: Prior Verbal Notification: Recipient Understood Notice: Yes Recipient Signature: Yes Med Rec Note Co-signed by Attending: Coverage Notice Comment: DC IMM delivered, explained, signed by the patient, and placed in chart. Signed form also left with the patient. Reviewer: [id number] - Dana Whittington Notice Issued Date-Time: 02/04/2020 13:25 Notice Type: Patient Choice Letter Notice Delivered To: Patient Relationship to Patient: Clipper Counters Name: Delivery Method: HAND - Hand Delivered Millie Days: Prior Verbal Notification: Recipient Understood Notice: Yes Recipient Signature: Yes Med Rec Note Co-signed by Attending: Coverage Notice Comment: KIRAN FOR ARSENIO Reviewer: [id number] Cain Whittington Notice Issued Date-Time: 02/08/2020 12:00 Notice Type: IM Discharge Notice Notice Delivered To: Patient Relationship to Patient: Clipper Counters Name: Delivery Method: HAND - Hand Delivered Millie Days: Prior Verbal Notification: Recipient Understood Notice: Yes Recipient Signature: Yes Med Rec Note Co-signed by Attending: Coverage Notice Comment: Reviewer: [id number] Cain Whittington Notice Issued Date-Time: 02/04/2020 13:25 Notice Type: IM Discharge Notice Notice Delivered To: Patient Relationship to Patient: Clipper Counters Name: Delivery Method: HAND - Hand Delivered Mlilie Days: Prior Verbal Notification: Recipient Understood Notice: Yes Recipient Signature: Yes Med Rec Note Co-signed by Attending: Coverage Notice Comment: IMM explained, signed, copy given and original placed in medical record. Last DP export: 02/10/20 6:02 p Patient Name: DARIELA SOLIZ Page [phone] at 0845 All edits/amendments must be made on the electronic document DICTATION DATE: 02/11/20844 SPRING LAYER: DWIGHT 02/11/20844 RPT#: [id number] DC DATE:02/10/20 STATUS: DIS IN [facility] [address] [place] [address] END OF REPORT
--- NOTE | 2020-02-11 14:50 | OP ---
PATIENT NAME: DARIELA SOLIZ MEDICAL RECORD: [id number] :[birth year] LOCATION:D.MS Good2218 ADMISSION DATE:02/01/20 SURGEON: KEVIN NASH MD DATE OF OPERATION: 02/01/2020 PREOPERATIVE DIAGNOSIS: Multiple incarcerated incisional hernias. POSTOPERATIVE DIAGNOSES: Multiple incarcerated incisional hernias with inability to close the fascia primarily over the mesh without the use of the unilateral component separation technique. PROCEDURE: Open complex incarcerated ventral incisional hernia repairs with Ventralight ST mesh and the unilateral component separation technique. The myofascial release on the left side consisted of the external oblique muscle and fascia and was 15.6 cm in length. SURGEON: Kevin Nash MD ENVIRONMENTAL HEALTH AND SAFETY LEADER: None. BLOOD LOSS: Please see the anesthesia sheet. DRAINS: Times one, 19-Croatian round Manohar drain. The risks, possible complications, and alternatives to the procedure were explained to the patient. She elects to proceed. OPERATIVE COURSE: The patient was conveyed to the operating room electively on 02/01/2020. General anesthesia was induced by the anesthesia staff. The abdomen was sterilely prepped and draped. There was a good bit of redundant adipose tissue in the midline that needed to be excised in order to allow for an adequate closure. There is a large scar in the midline from a prior laparotomy. The patient was aware of that the umbilicus would need to be removed. Through the use of double curvilinear incisions, I excised the redundant skin and subcutaneous tissue. Later on in the operation, I had to do this several more times in order to prevent a subcutaneous cavity that could become a seroma or subcutaneous hematoma. I then dissected down to several hernia defects. I entered the peritoneal cavity sharply. I began to takedown adhesions. This process took about 45 minutes. No enterotomies occurred. No seromyotomy has occurred. There were about 10 incisional hernias and all of these were reduced. There was no bowel injury. I freed up as much of the small bowel as I could, lysing adhesions between loops of small bowel. I excised some attenuated fascia on either side medial to the rectus sheath. I then excised this attenuated fascia back to the rectus sheaths cells. I brought a large Ventralight ST mesh onto the sterile field. It was positioned OPERATIVE REPORT [id number] DARIELA SOLIZ in proper orientation with the slick side toward the bowels and the rough side toward the overlying muscle and fascia. This was going to be intraperitoneal mesh placement behind the muscle and fascia. I took some 0 Surgidac sutures and sutured them at 4 quadrants on the mesh. I then placed the mesh into the peritoneal cavity. At 4 sites, 2 on either side of the midline I made some skin incisions and through each one of these skin incisions, I passed a laparoscopic suture passer twice. Each time, I brought it out through a different fascial puncture and grasped a 0 Surgidac suture. This brought the mesh into the proper orientation and I then tied down these sutures thus creating a very stable mesh placement behind the muscle. I tried to close the fascia in the midline over the mesh. I was unable to do this. The closure was going to be very tight. An incision was accomplished between the left anterior superior iliac spine and the left costal margin. I dissected down through skin and subcutaneous tissue and then encountered the external oblique muscle and fascia. I incised through this muscle and fascia. Some finger dissection was performed and I was able to perform myofascial release utilizing the electrocautery. The length of the releases was as listed above. I then tried to close the fascia in the midline. Here again, it was going to be very tight closure. I went around to the right side. A similar incision was accomplished. I dissected down where I thought was the external oblique muscle and fascia. I incised this and instead the fibers were not tangential, but were a parasagittal muscles. These may have represented paraspinal muscles. I elected to perform no further dissection on that side. I was able to close the muscle and fascia in the midline, incorporating a portion of the underlying mesh. The fascial closure consisted of running looped #1 PDS at the cephalad portion of the fascial closure. At the caudad portion, it consisted of multiple interrupted #1 Surgidacs. I then overran the fascial repair with a running #1 Surgidac. A 19-Croatian Manohar drain was placed within the central incision and brought out through a stab incision inferiorly and to the left. The drain was sutured to skin with a 2-0 nylon. The small lateral incisions were closed in 2 layers with interrupted 3-0 Vicryl for the deep dermis as well as metallic clips. The midline was closed with interrupted 3-0 Vicryls for the subdermis as well as metallic clips interposed with some 2-0 nylons in a vertical mattress fashion. A Prevena plus wound VAC was then applied over the midline. An abdominal binder was placed as well. The patient was then extubated and conveyed to post-anesthesia care unit where she was in stable condition. TRANSINT:[id number] Voice Confirmation ID: [id number] DOCUMENT ID: [id number] OPERATIVE REPORT [id number] DARIELA SOLIZ ROBERT MD at 1450 CC: [id number] DICTATION DATE: 02/10/20 183 ICT SUPPORT TECHNICIANS: 02/11/20 0217 DIS IN 02/10/20 [facility] [address] [place] [address]
== END 2020-02-10 19:04 | disposition home health service (06) | DRG 353 ==
LOC: D.OPS 05:39 → D.PAN 08:00 → D.MS 14:27 → D.OPS 18:46 → D.MS 02-10 19:04
PROVIDERS: Surgery; ADMIT Surgery; ATTEND Surgery
PROC: 0WQF0ZZ Repair Abdominal Wall, Open Approach (ICD-10-PCS; principal; 2020-02-01 08:00)
DX: K43.9 Ventral hernia without obstruction or gangrene (principal); I50.31 Acute diastolic (congestive) heart failure; K56.7 Ileus, unspecified; J98.11 Atelectasis; R10.9 Unspecified abdominal pain; R06.02 Shortness of breath